=== PATIENT | male | born 1960 | race African-American/Black ===

== ENCOUNTER 2019-11-20 09:52 | Day surgery (SDC) | payer MEDICAID ==
[2019-11-20 11:46] LABS: HEMATOCRIT 42.4 % (42.0-52.0); HEMOGLOBIN 14.1 g/dL (14.0-18.0); MEAN CORPUSCULAR HEMOGLOBIN 29.6 pg (28.0-32.0); MEAN CORPUSCULAR VOLUME 89.3 fL (80.0-94.0); PLATELET 287 x1000/uL (130-400); RED BLOOD CELL COUNT 4.75 mill/uL (4.7-6.1); RED CELL DISTRIBUTION WIDTH 14.5 % (11.6-14.6)
[2019-11-20] MEDS ORDERED: CAPT50TA3 MT (11:50)
[2019-11-20] MEDS ORDERED: CHLO25TA2 PO (11:50)
[2019-11-20] MEDS ORDERED: AMLO10TA80 MT (11:50)
[2019-11-20] MEDS ORDERED: TAMS-11 PO (11:50)
[2019-11-20] MEDS ORDERED: ASPI-1497 MT (11:50)
[2019-11-20] MEDS ORDERED: LORA10TA7 MT (11:50)
[2019-11-20] MEDS ORDERED: HYDR-4134 MT (11:50)
[2019-11-20] MEDS ORDERED: ATOR20TA65 MT (11:50)
[2019-11-20 11:53] LABS: CHLORIDE 106 mEq/L (98-107)
[2019-11-20] MEDS ORDERED: ALBU6.7H9 INH (11:57)
[2019-11-20] MEDS ORDERED: DORZ10DR8 EACHEYE (11:57)
[2019-11-20] MEDS ORDERED: GLIP2.5T3 MT (11:57)
[2019-11-20] MEDS ORDERED: CARV12.545 MT (11:57)
[2019-11-20] MEDS ORDERED: METF-416 PO (11:57)
[2019-11-20] MEDS ORDERED: LATA7.5D OP (11:57)
[2019-11-20] MEDS ORDERED: GLIP10TA10 PO (11:57)
[2019-11-20] MEDS ORDERED: INSU100I24 SQ (11:57)
[2019-11-20] MEDS ORDERED: HEPARIN SODIUM 1,000 UNIT/1ML VIAL IV ONE (12:09)
[2019-11-20 12:17] LABS: PROTHROMBIN TIME 10.4 sec (9.6-11.0)
[2019-11-20] MEDS ORDERED: LIDOCAINE HCL 1% 20ML VIAL (Pyxis) INJ ONE (12:55)
[2019-11-20] MEDS ORDERED: IODIXANOL 320MG/ML 100 ML BOTTLE IV ONE (12:55)
[2019-11-20] MEDS ORDERED: MIDAZOLAM HCL 2 MG/2 ML VIAL ONE (12:58)
[2019-11-20] MEDS ORDERED: FENTANYL CITRATE/PF 50MCG/ML 2ML VIAL ONE (12:59)
[2019-11-20] MEDS ORDERED: MORPHINE SULFATE 2 MG/ML CPJ (NOT FOR IM USE) IV PRN (13:30)
[2019-11-20] MEDS ORDERED: ACETAMINOPHEN 325MG TABLET PO PRN (13:30)
[2019-11-20] MEDS ORDERED: ONDANSETRON HCL 4MG/2ML INJ IV PRN (13:30)
[2019-11-20] MEDS ORDERED: NITROGLYCERIN 0.4MG TABLET SL SL PRN (14:30)
[2019-11-20] MEDS ORDERED: ALLOPURINOL 300 MG TABLET PO SCH (14:30)
[2019-11-20] MEDS ORDERED: ASCORBIC ACID 500 MG TABLET PO SCH (14:30)
== END 2019-11-20 18:15 | disposition home or self-care (01) ==
LOC: CCL 09:52
PROVIDERS: ATTEND Internal Medicine Cardiovascular Disease
DX: R94.39 Abnormal result of other cardiovascular function study (principal); I25.10 Atherosclerotic heart disease of native coronary artery without angina pectoris; I10 Essential (primary) hypertension; E78.5 Hyperlipidemia, unspecified; E11.9 Type 2 diabetes mellitus without complications; J45.909 Unspecified asthma, uncomplicated; N40.0 Benign prostatic hyperplasia without lower urinary tract symptoms; H40.9 Unspecified glaucoma; Z79.82 Long term (current) use of aspirin; Z79.899 Other long term (current) drug therapy; Z79.84 Long term (current) use of oral hypoglycemic drugs
CPT/HCPCS: 36415; 71045; 80048; 85027; 85610; 93005; 93458; 93880; 93970; 99152; C1769; C1887; C1893; J1644; J2250; J3010; J3490; Q9967; G0500

== ENCOUNTER 2019-11-27 08:01 | Inpatient (IN) | payer MEDICAID ==
[~2019-11-27] VITALS: Ht 170.2 cm; Wt 85.7 kg
[2019-11-27] VITALS (24 sets, daily range): BP systolic 129–184; BP diastolic 35–84
[~2019-11-27 08:01] MED LIST: ALBU6.7H9 INH; AMINOCAPROIC ACID 10,000 MG in SODIUM CHLORIDE 0.9% 460 ML IV ONE; AMLO10TA80 MT; ASPI-1497 MT; ATOR20TA65 MT; CAPT50TA3 MT; CARV12.545 MT; CEFAZOLIN 2,000 MG in DEXTROSE 5% WATER 50 ML IV SCH; CHLO25TA2 PO; DEL NIDO ELECTROLYTE-S(PH 7.4) 1,000 ML IV ONE; DILTIAZEM HCL 5MG/ML 10ML VIAL IV SCH; DOBUTAMINE 250MG PREMIX 250 ML IV SCH; DOPAMINE 400MG/250ML PREMIX 250 ML IV SCH; DORZ10DR8 EACHEYE; EPINEPHRINE 4 MG in DEXT 5% WATER 250 ML IV ONE; GLIP10TA10 PO; GLIP2.5T3 MT; HYDR-4134 MT; INSU100I24 SQ; LATA7.5D OP; LORA10TA7 MT; METF-416 PO; NICARDIPINE 50 MG in SODIUM CHLORIDE 0.9% 230 ML IV ONE; NOREPINEPHRINE 4 MG in DEXT 5% WATER 246 ML IV ONE; NOREPINEPHRINE 4MG/250ML PMX 250 ML IV ONE; PAPAVERINE HCL 180MG in SODIUM CHLORIDE 0.9% 24ML IV ONE; PHENYLEPHRINE 10MG in DEXT 5% WATER 250ML IV PRN; TAMS-11 PO
[2019-11-27 09:03] LABS: EOSINOPHILS % 3.2 % (0.0-5.0); HEMATOCRIT. 41.4 % (42.0-52.0); HEMOGLOBIN. 14.1 g/dL (14.0-18.0); LYMPHOCYTES % 18.7 % (20.0-50.0); MEAN CORPUSCULAR HEMOGLOBIN 30.1 pg (28.0-32.0); MEAN CORPUSCULAR VOLUME 88.6 fL (80.0-94.0); MEAN PLATELET VOLUME 7.5 fl (7.4-10.4); NEUTROPHILS % 68.1 % (40.0-76.0); PLATELET 277 x1000/uL (130-400); RED BLOOD CELL COUNT 4.67 mill/uL (4.7-6.1); RED CELL DISTRIBUTION WIDTH 14.4 % (11.6-14.6)
[2019-11-27 09:11] LABS: CHLORIDE 105 mEq/L (98-107)
[2019-11-27 09:14] LABS: PARTIAL THROMBOPLASTIN TIME 26.7 sec (23.4-31.0); PROTHROMBIN TIME 10.7 sec (9.6-11.0)
[2019-11-27] MEDS ORDERED: THROMBIN (BOVINE) 5000 UNITS/VIAL TOP ONE (09:51)
[2019-11-27] MEDS ORDERED: BACITRACIN 15GM TUBE TOP ONE ×2 (09:51→09:53)
[2019-11-27] MEDS ORDERED: BACITRACIN 50,000 UNITS/VIAL ONE (09:52)
[2019-11-27] MEDS ORDERED: HEPARIN 1000 UNITS/ML 10ML ONE ×4 (09:54→15:05)
[2019-11-27] MEDS ORDERED: NORMAL SALINE 0.9% 10 ML SYR ONE (09:57)
[2019-11-27] MEDS ORDERED: SODIUM CHLORIDE 0.9% IRRIG SOL 8,000 ML IR ONE (09:57)
[2019-11-27] MEDS ORDERED: SODIUM CHLORIDE 0.9% 4,000 ML ONE (09:57)
[2019-11-27] MEDS ORDERED: AMLO10TA80 MT (12:15)
[2019-11-27] MEDS ORDERED: HYDR-4134 PO (12:15)
[2019-11-27] MEDS ORDERED: CAPT50TA3 PO (12:15)
[2019-11-27] MEDS ORDERED: ASPI-1497 PO (12:15)
[2019-11-27] MEDS ORDERED: CARV12.545 PO (12:15)
[2019-11-27] MEDS ORDERED: ATOR20TA65 PO (12:15)
[2019-11-27] MEDS ORDERED: TAMS-11 PO (12:15)
[2019-11-27] MEDS ORDERED: CHLO25TA2 PO (12:15)
[2019-11-27] MEDS ORDERED: METF100092 PO (12:15)
[2019-11-27] MEDS ORDERED: LORA10TA7 PO (12:15)
[2019-11-27] MEDS ORDERED: INSU100I24 SQ (12:15)
[2019-11-27] MEDS ORDERED: ALBU90AE INH (12:15)
[2019-11-27] MEDS ORDERED: GLIP10TA10 PO (12:15)
[2019-11-27] MEDS ORDERED: MAGNESIUM SULFATE 5GM/10ML VIAL IV ONE ×2 (12:51→14:28)
[2019-11-27] MEDS ORDERED: MANNITOL 20% 500 ML IV ONE (12:51)
[2019-11-27] MEDS ORDERED: ALBUMIN HUMAN 25GM/100ML (25%) IV ONE (12:51)
[2019-11-27] MEDS ORDERED: CALCIUM CHLORIDE 1GM/10ML SYR IV ONE (12:51)
[2019-11-27] MEDS ORDERED: PHENYLEPHRINE HCL 10 MG/ML 1ML (IV VIAL) IV ONE (12:51)
[2019-11-27] MEDS ORDERED: AMINOCAPROIC ACID 250 MG/ML 20ML VIAL ONE (12:51)
[2019-11-27] MEDS ORDERED: SODIUM BICARBONATE 8.4% 1 MEQ/ML 50ML SYR IV ONE ×2 (12:52→12:53)
[2019-11-27] MEDS ORDERED: HEPARIN 10,000 UNITS/ML VIAL ONE (12:52)
[2019-11-27] MEDS ORDERED: MIDAZOLAM HCL 2 MG/2 ML VIAL ONE (13:22)
[2019-11-27] MEDS ORDERED: FENTANYL CITRATE/PF 50MCG/ML 5ML VIAL ONE (13:23)
[2019-11-27] MEDS ORDERED: PROPOFOL 10MG/ML 100ML 100 ML IV ONE (13:31)
[2019-11-27] MEDS ORDERED: DOPAMINE 400MG/250ML PREMIX 250 ML IV ONE (14:07)
[2019-11-27] MEDS ORDERED: FUROSEMIDE 100MG/10ML VIAL ONE (14:26)
[2019-11-27] MEDS ORDERED: SKIN ADHESIVE 0.7 GM EA TOP ONE (15:26)
[2019-11-27] MEDS ORDERED: ROCURONIUM BROMIDE 10MG/ML VIAL 5ML IV ONE (15:33)
[2019-11-27] MEDS ORDERED: PROTAMINE SULFATE 10MG/ML VIAL 25ML IV ONE (16:44)
[2019-11-27] MEDS ORDERED: DEXMEDETOMIDINE 400 MCG/100 ML 100 ML IV ONE (16:46)
[2019-11-27] MEDS ORDERED: ONDANSETRON HCL 4MG/2ML INJ ONE (16:51)
[2019-11-27] MEDS ORDERED: METOCLOPRAMIDE HCL 10MG/2ML VIAL ONE (16:51)
[2019-11-27] MEDS ORDERED: STERILE WATER FOR INJECTION 10ML VIAL ONE (17:04)
[2019-11-27] MEDS ORDERED: CEFAZOLIN SODIUM 1000MG/VIAL ONE (17:04)
[2019-11-27] MEDS ORDERED: NEOSTIGMINE METHYLSULFATE 1MG/ML 10 ML VIAL ONE (17:09)
[2019-11-27] MEDS ORDERED: KETOROLAC 30MG/ML VIAL ONE (17:10)
[2019-11-27] MEDS ORDERED: DOPAMINE 400MG/250ML PREMIX 250 ML IV SCH (17:26)
[2019-11-27] MEDS ORDERED: CALCIUM CHLORIDE 3,000 MG in DEXT 5% WATER 250 ML IV PRN (17:30)
[2019-11-27] MEDS ORDERED: MAGNESIUM SULFATE 3 GM in DEXT 5% WATER 100 ML IV PRN (17:30)
[2019-11-27] MEDS ORDERED: MAGNESIUM 2 G PREMIX 50 ML IV PRN (17:30)
[2019-11-27] MEDS ORDERED: ACETAMINOPHEN 325MG TABLET PO PRN (17:30)
[2019-11-27] MEDS ORDERED: NICARDIPINE 50 MG in SODIUM CHLORIDE 0.9% 230 ML IV PRN (17:30)
[2019-11-27] MEDS ORDERED: MAGNESIUM 1 G PREMIX 100 ML IV PRN (17:30)
[2019-11-27] MEDS ORDERED: EPINEPHRINE 1 MG in DEXT 5% WATER 250 ML IV SCH (17:30)
[2019-11-27 18:17] LABS: BG BASE EXCESS 2.3 mmol/L (-2.0-2.0); BG CARBOXYHEMOGLOBIN 0.3 % (0.5-1.5); BG HCO3 ACT 27.1 mmol/L (22.0-26.0); BG METHEMOGLOBIN 0.3 % (0.0-1.5); BG OXYHEMOGLOBIN 98.4 % (94.0-97.0); BG PCO2 43.1 mmHg (35.0-45.0); BG PH 7.417 (7.350-7.450); BG PO2 358.9 mmHg (75.0-100.0); BG SAMPLE SITE A-LINE; BG TOTAL HEMOGLOBIN 11.6 g/dL (12.0-18.0); BG VENT MODE MASK - NRB
[2019-11-27] MEDS ORDERED: NITROGLYCERIN 50MG PREMIX 250 ML IV PRN (18:30)
[2019-11-27 18:35] LABS: HEMATOCRIT. 32.1 % (42.0-52.0); HEMOGLOBIN. 11.1 g/dL (14.0-18.0); MEAN CORPUSCULAR HEMOGLOBIN 30.5 pg (28.0-32.0); MEAN CORPUSCULAR VOLUME 88.3 fL (80.0-94.0); MEAN PLATELET VOLUME 7.8 fl (7.4-10.4); PLATELET 210 x1000/uL (130-400); RED BLOOD CELL COUNT 3.64 mill/uL (4.7-6.1); RED CELL DISTRIBUTION WIDTH 14.1 % (11.6-14.6)
[2019-11-27 18:41] LABS: CHLORIDE 104 mEq/L (98-107)
[2019-11-27 18:43] LABS: INR 1.2; PARTIAL THROMBOPLASTIN TIME 27.5 sec (23.4-31.0)
[2019-11-27] MEDS ORDERED: SODIUM CHLORIDE 0.9% 500 ML IV PRN (18:52)
[2019-11-27] MEDS ORDERED: ONDANSETRON HCL 4MG/2ML INJ IV PRN (18:54)
[2019-11-27] MEDS ORDERED: KCL 10MEQ/50ML PREMIX 100 ML IV PRN (19:00)
[2019-11-27] MEDS ORDERED: KCL 10MEQ/50ML PREMIX 150 ML IV PRN (19:00)
[2019-11-27] MEDS ORDERED: KCL 10MEQ/50ML PREMIX 200 ML IV PRN (19:00)
[2019-11-27] MEDS: DEXT 5%/0.45% NACL 1000ML 1,000 ML IV SCH (19:05)
[2019-11-27] MEDS: SODIUM CHLORIDE 0.9% 1,000 ML IV SCH (19:05)
[2019-11-27] MEDS: FAMOTIDINE 20MG/2ML VIAL IV SCH (19:06)
[2019-11-27] MEDS: KETOROLAC 30MG/ML VIAL IV SCH (19:07)
[2019-11-27] MEDS: MORPHINE SULFATE 2 MG/ML CPJ (NOT FOR IM USE) IV PRN (19:08)
[2019-11-27 19:49] LABS: PLATELET ESTIMATE NORMAL
[2019-11-27] MEDS: CEFAZOLIN 1000MG PREMIX 50 ML IV SCH (20:40)
[2019-11-27 22:29] LABS: HEMATOCRIT. 33.4 % (42.0-52.0); HEMOGLOBIN. 11.4 g/dL (14.0-18.0); MEAN CORPUSCULAR VOLUME 87.9 fL (80.0-94.0); MEAN PLATELET VOLUME 7.7 fl (7.4-10.4); PLATELET 211 x1000/uL (130-400); RED CELL DISTRIBUTION WIDTH 13.9 % (11.6-14.6)
[2019-11-27 22:36] LABS: CHLORIDE 106 mEq/L (98-107)
[2019-11-27 22:48] LABS: PLATELET ESTIMATE NORMAL
[2019-11-27] MEDS: OXYCODONE HCL/ACETAMINOPHEN 5/325MG TABLET PO PRN (23:02)
[2019-11-27] MEDS: INSULIN R (DRIP) 100 UNITS in SODIUM CHLORIDE 0.9% 100ML IV PRN (23:35)
[2019-11-28] VITALS (53 sets, daily range): BP systolic 104–154; BP diastolic 46–85
[2019-11-28] MEDS: KETOROLAC 30MG/ML VIAL IV SCH ×3 (01:00→13:29)
[2019-11-28] MEDS: MORPHINE SULFATE 2 MG/ML CPJ (NOT FOR IM USE) IV PRN ×2 (02:57→21:01)
[2019-11-28] MEDS: CEFAZOLIN 1000MG PREMIX 50 ML IV SCH ×2 (04:21→12:32)
[2019-11-28] MEDS: IPRATROPIUM/ALBUTEROL 0.5-3(2.5)MG/3ML NEB HHN SCH ×5 (04:28→20:32)
[2019-11-28 05:26] LABS: HEMATOCRIT. 32.7 % (42.0-52.0); HEMOGLOBIN. 11.1 g/dL (14.0-18.0); MEAN CORPUSCULAR HEMOGLOBIN 30.2 pg (28.0-32.0); MEAN CORPUSCULAR VOLUME 88.8 fL (80.0-94.0); MEAN PLATELET VOLUME 8.1 fl (7.4-10.4); PLATELET 217 x1000/uL (130-400); RED BLOOD CELL COUNT 3.69 mill/uL (4.7-6.1); RED CELL DISTRIBUTION WIDTH 14.4 % (11.6-14.6)
[2019-11-28 05:36] LABS: CHLORIDE 105 mEq/L (98-107)
[2019-11-28] MEDS ORDERED: KCL 10MEQ/50ML PREMIX 200 ML IV PRN (06:00)
[2019-11-28] MEDS ORDERED: KCL 10MEQ/50ML PREMIX 150 ML IV PRN (06:00)
[2019-11-28] MEDS: KCL 10MEQ/50ML PREMIX 100 ML IV PRN (06:06)
[2019-11-28] MEDS ORDERED: MAGNESIUM 4 G PREMIX 100 ML IV NR (06:30)
[2019-11-28] MEDS ORDERED: FUROSEMIDE 40MG/4ML VIAL IVP NR (06:30)
[2019-11-28] MEDS: INSULIN R (DRIP) 100 UNITS in SODIUM CHLORIDE 0.9% 100ML IV PRN (07:46)
[2019-11-28] MEDS: DOCUSATE SODIUM 100MG CAPSULE PO SCH ×2 (08:30→18:02)
[2019-11-28] MEDS: FAMOTIDINE 20MG/2ML VIAL IV SCH (08:30)
[2019-11-28] MEDS: BACITRACIN 15GM TUBE TOP SCH ×2 (09:00→17:00)
[2019-11-28 11:47] LABS: PLATELET ESTIMATE NORMAL
[2019-11-28] MEDS: DEXT 5%/0.45% NACL 1000ML 1,000 ML IV SCH (12:32)
[2019-11-28] MEDS: ASPIRIN 81MG TABLET PO SCH (14:40)
[2019-11-28] MEDS ORDERED: DEXTROSE 50% WATER 50ML SYRINGE IV PRN (15:15)
[2019-11-28] MEDS: INSULIN GLARGINE UD 100 UNITS/ML SYR SUBCUT SCH ×2 (16:06→19:16)
[2019-11-28] MEDS: INSULIN LISPRO 100 UNITS/ML SUBCUT SCH ×2 (18:02→21:25)
[2019-11-28] MEDS: BLOOD SUGAR DIAGNOSTIC STRIP TEST SCH ×2 (18:02→20:40)
[2019-11-28] MEDS: OXYCODONE HCL/ACETAMINOPHEN 5/325MG TABLET PO PRN (18:03)
[2019-11-28] MEDS: SODIUM CHLORIDE 0.9% 1,000 ML IV SCH (19:00)
[2019-11-28] MEDS: TAMSULOSIN HCL 0.4MG SR CAPSULE PO SCH (19:00)
[2019-11-28] MEDS: CARVEDILOL 6.25 MG TABLET PO SCH (21:26)
[2019-11-28] MEDS: ATORVASTATIN CALCIUM 40MG TABLET PO SCH (21:26)
[2019-11-29] VITALS (24 sets, daily range): BP systolic 100–155; BP diastolic 53–103
[2019-11-29] MEDS: IPRATROPIUM/ALBUTEROL 0.5-3(2.5)MG/3ML NEB HHN SCH ×6 (00:15→20:09)
[2019-11-29] MEDS: OXYCODONE HCL/ACETAMINOPHEN 5/325MG TABLET PO PRN ×4 (03:33→22:46)
[2019-11-29 06:44] LABS: CHLORIDE 101 mEq/L (98-107)
[2019-11-29 06:49] LABS: HEMATOCRIT. 29.1 % (42.0-52.0); HEMOGLOBIN. 9.6 g/dL (14.0-18.0); MEAN CORPUSCULAR HEMOGLOBIN 29.3 pg (28.0-32.0); MEAN PLATELET VOLUME 8.3 fl (7.4-10.4); PLATELET 183 x1000/uL (130-400); RED BLOOD CELL COUNT 3.27 mill/uL (4.7-6.1)
[2019-11-29] MEDS: KCL 10MEQ/50ML PREMIX 100 ML IV PRN ×2 (07:19→07:27)
[2019-11-29] MEDS: BLOOD SUGAR DIAGNOSTIC STRIP TEST SCH ×3 (07:33→20:49)
[2019-11-29] MEDS ORDERED: GLIPIZIDE 5MG TABLET PO SCH (07:50)
[2019-11-29] MEDS: DOCUSATE SODIUM 100MG CAPSULE PO SCH ×2 (08:21→17:34)
[2019-11-29] MEDS: ASPIRIN 81MG TABLET PO SCH (08:21)
[2019-11-29] MEDS: FAMOTIDINE 20MG TABLET PO SCH (08:22)
[2019-11-29] MEDS: INSULIN LISPRO 100 UNITS/ML SUBCUT SCH ×5 (08:22→21:31)
[2019-11-29] MEDS: TAMSULOSIN HCL 0.4MG SR CAPSULE PO SCH (08:23)
[2019-11-29] MEDS: CARVEDILOL 6.25 MG TABLET PO SCH ×2 (08:23→20:57)
[2019-11-29] MEDS: BACITRACIN 15GM TUBE TOP SCH ×2 (08:36→17:00)
[2019-11-29] MEDS ORDERED: FUROSEMIDE 40MG/4ML VIAL IVP NR (10:00)
[2019-11-29 11:51] LABS: PLATELET ESTIMATE NORMAL
[2019-11-29] MEDS ORDERED: GLIPIZIDE 5MG TABLET PO NR (12:15)
[2019-11-29] MEDS: FUROSEMIDE 40MG TABLET PO SCH (16:37)
[2019-11-29] MEDS: ATORVASTATIN CALCIUM 40MG TABLET PO SCH (20:57)
[2019-11-29] MEDS: INSULIN GLARGINE UD 100 UNITS/ML SYR SUBCUT SCH (21:36)
[2019-11-30] VITALS (12 sets, daily range): BP systolic 108–137; BP diastolic 49–75
[2019-11-30] MEDS: IPRATROPIUM/ALBUTEROL 0.5-3(2.5)MG/3ML NEB HHN SCH ×6 (00:16→21:00)
[2019-11-30] MEDS: OXYCODONE HCL/ACETAMINOPHEN 5/325MG TABLET PO PRN (04:10)
[2019-11-30] MEDS: BLOOD SUGAR DIAGNOSTIC STRIP TEST SCH ×4 (06:08→21:18)
[2019-11-30] MEDS ORDERED: GLIPIZIDE 5MG TABLET PO SCH (06:50)
[2019-11-30 07:27] LABS: BASOPHILS % 0.6 % (0.0-2.0); EOSINOPHILS % 0.6 % (0.0-5.0); HEMATOCRIT. 27.9 % (42.0-52.0); HEMOGLOBIN. 9.4 g/dL (14.0-18.0); LYMPHOCYTES % 7.4 % (20.0-50.0); MEAN CORPUSCULAR HEMOGLOBIN 29.7 pg (28.0-32.0); MEAN PLATELET VOLUME 7.7 fl (7.4-10.4); MONOCYTES % 9.7 % (2.0-8.0); NEUTROPHILS % 81.7 % (40.0-76.0); PLATELET 191 x1000/uL (130-400); RED BLOOD CELL COUNT 3.17 mill/uL (4.7-6.1); RED CELL DISTRIBUTION WIDTH 13.7 % (11.6-14.6)
[2019-11-30] MEDS ORDERED: FUROSEMIDE 40MG/4ML VIAL IVP NR ×2 (07:45→16:00)
[2019-11-30] MEDS: FAMOTIDINE 20MG TABLET PO SCH (09:30)
[2019-11-30] MEDS: TAMSULOSIN HCL 0.4MG SR CAPSULE PO SCH (09:30)
[2019-11-30] MEDS: ASPIRIN 81MG TABLET PO SCH (09:30)
[2019-11-30] MEDS: CARVEDILOL 6.25 MG TABLET PO SCH ×2 (09:30→20:58)
[2019-11-30] MEDS: DOCUSATE SODIUM 100MG CAPSULE PO SCH ×2 (09:30→17:01)
[2019-11-30] MEDS: FUROSEMIDE 40MG TABLET PO SCH (09:30)
[2019-11-30] MEDS: MORPHINE SULFATE 2 MG/ML CPJ (NOT FOR IM USE) IV PRN ×2 (10:04→15:32)
[2019-11-30 10:09] LABS: CHLORIDE 102 mEq/L (98-107)
[2019-11-30] MEDS: BACITRACIN 15GM TUBE TOP SCH ×2 (13:13→17:00)
[2019-11-30] MEDS: INSULIN LISPRO 100 UNITS/ML SUBCUT SCH ×3 (13:13→21:23)
[2019-11-30] MEDS: METFORMIN HCL 500MG TABLET PO SCH (17:01)
[2019-11-30] MEDS: GLIPIZIDE 5MG TABLET PO SCH (17:01)
[2019-11-30] MEDS: ATORVASTATIN CALCIUM 40MG TABLET PO SCH (20:58)
[2019-11-30] MEDS: INSULIN GLARGINE UD 100 UNITS/ML SYR SUBCUT SCH (21:23)
[2019-12-01] VITALS (8 sets, daily range): BP systolic 99–157; BP diastolic 55–83
[2019-12-01] MEDS: IPRATROPIUM/ALBUTEROL 0.5-3(2.5)MG/3ML NEB HHN SCH ×4 (00:48→12:28)
[2019-12-01] MEDS: MORPHINE SULFATE 2 MG/ML CPJ (NOT FOR IM USE) IV PRN (01:16)
[2019-12-01] MEDS: INSULIN LISPRO 100 UNITS/ML SUBCUT SCH ×2 (06:39→12:18)
[2019-12-01] MEDS: BLOOD SUGAR DIAGNOSTIC STRIP TEST SCH ×2 (06:39→11:45)
[2019-12-01 07:44] LABS: HEMATOCRIT 30.3 % (42.0-52.0); HEMOGLOBIN 10.3 g/dL (14.0-18.0); MEAN CORPUSCULAR HEMOGLOBIN 29.8 pg (28.0-32.0); MEAN CORPUSCULAR VOLUME 87.5 fL (80.0-94.0); PLATELET 253 x1000/uL (130-400); RED BLOOD CELL COUNT 3.46 mill/uL (4.7-6.1); RED CELL DISTRIBUTION WIDTH 13.8 % (11.6-14.6)
[2019-12-01 07:47] LABS: CHLORIDE 103 mEq/L (98-107)
[2019-12-01] MEDS: METFORMIN HCL 500MG TABLET PO SCH (07:51)
[2019-12-01] MEDS: BACITRACIN 15GM TUBE TOP SCH (07:56)
[2019-12-01] MEDS: ASPIRIN 81MG TABLET PO SCH (07:57)
[2019-12-01] MEDS: TAMSULOSIN HCL 0.4MG SR CAPSULE PO SCH (07:57)
[2019-12-01] MEDS: FAMOTIDINE 20MG TABLET PO SCH (07:57)
[2019-12-01] MEDS: GLIPIZIDE 5MG TABLET PO SCH (07:57)
[2019-12-01] MEDS: DOCUSATE SODIUM 100MG CAPSULE PO SCH (07:57)
[2019-12-01] MEDS: FUROSEMIDE 40MG TABLET PO SCH (07:57)
[2019-12-01] MEDS: CARVEDILOL 6.25 MG TABLET PO SCH (07:58)
[2019-12-01] MEDS: OXYCODONE HCL/ACETAMINOPHEN 5/325MG TABLET PO PRN (08:41)
[2019-12-01] MEDS: FUROSEMIDE 40MG/4ML VIAL IVP SCH ×3 (11:45→12:20)
[2019-12-01] MEDS ORDERED: POTASSIUM CHLORIDE 20MEQ TABLET SR PO SCH (12:15)
[2019-12-01] MEDS ORDERED: FUROSEMIDE 40MG TABLET PO SCH (17:00)
== END 2019-12-01 14:05 | disposition home health service (06) | DRG 166 ==
LOC: OR 08:01 → CVICU 18:22 → 3WST 11-29 12:19
PROVIDERS: ATTEND Thoracic Surgery (Cardiothoracic Vascular Surgery)
PROC: 02100Z9 Bypass Coronary Artery, One Artery from Left Internal Mammary, Open Approach (ICD-10-PCS; principal; 2019-11-27)
PROC: 021309W Bypass Coronary Artery, Four or More Arteries from Aorta with Autologous Venous Tissue, Open Approach (ICD-10-PCS; 2019-11-27)
PROC: 5A1221Z Performance of Cardiac Output, Continuous (ICD-10-PCS; 2019-11-27)
PROC: 06BQ4ZZ Excision of Left Saphenous Vein, Percutaneous Endoscopic Approach (ICD-10-PCS; 2019-11-27)
DX: I25.110 Atherosclerotic heart disease of native coronary artery with unstable angina pectoris (principal); E87.70 Fluid overload, unspecified; E11.9 Type 2 diabetes mellitus without complications; I10 Essential (primary) hypertension; E78.5 Hyperlipidemia, unspecified; J45.909 Unspecified asthma, uncomplicated; Z79.4 Long term (current) use of insulin; Z79.84 Long term (current) use of oral hypoglycemic drugs; Z79.899 Other long term (current) drug therapy
CPT/HCPCS: 36415; 36600; 71045; 80048; 82375; 82805; 82962; 83036; 83735; 84132; 85025; 85027; 85347; 85520; 86850; 86900; 86920; 88305; 93005; 94640; 97110; 97116; 97163; 97167; 97535; A4216; C1729; C1751; C1758; J0690; J1250; J1265; J1644; J1815; J1885; J1940; J2250; J2270; J2370; J2405; J2440; J2704; J2710; J2720; J2765; J3010; J3475; J3480; J3490; J7030; J7040; J7050; J7060; L3908; P9047; Q9957